=== PATIENT | female | born 2005 | race Hispanic/Latino ===

== ENCOUNTER 2023-03-06 06:05 | Observation (INO) | payer OTHER ==
[2023-03-05 15:05] LABS: BASOPHILS # (AUTO) 0.03 K/uL (0.00-0.20); BASOPHILS % (AUTO) 0.5 % (0.0-5.0); EOSINOPHILS # (AUTO) 0.03 K/uL (0.00-0.70); EOSINOPHILS % (AUTO) 0.5 % (0.0-8.0); IMMATURE GRANULOCYTE ABSOLUTE 0.02 K/uL (0-1); LYMPHOCYTES # (AUTO) 1.4 K/uL (1.0-4.8); LYMPHOCYTES % (AUTO) 23.9 % (21.0-51.0); MEAN CORPUSCULAR HEMOGLOBIN 28.9 pg (27.0-33.0); MEAN CORPUSCULAR HGB CONC 32.3 g/dL (32.0-36.0); MEAN CORPUSCULAR VOLUME 89.5 fL (80-100); MONOCYTES # (AUTO) 0.4 K/uL (0.1-1.0); MONOCYTES % (AUTO) 7.4 % (3.0-13.0); NEUTROPHILS % (AUTO) 67.4 % (40.0-77.0); PLATELET COUNT (AUTO) 282 K/uL (130-400); RED BLOOD CELL COUNT(AUTO) 4.47 MIL/uL (4.00-5.50); RED CELL DISTRIBUTION WIDTH 12.8 % (11.0-15.5)
[2023-03-05 15:11] VITALS: BP 123/59; PULSE 66; RESP 16
[2023-03-05 15:21] LABS: CREATININE 0.6 mg/dL (0.5-1.5); POTASSIUM 4.3 mmol/L (3.5-5.1)
[2023-03-06] VITALS (29 sets, daily range): BP systolic 96–115; BP diastolic 50–68; PULSE 61–94; RESP 12–20; O2SAT 97–99
[~2023-03-06] VITALS: Ht 160 cm; Wt 89.4 kg
[2023-03-06] MEDS ORDERED: LACTATED RINGERS 1000ML 1,000 ML IV ONE (06:30)
[2023-03-06] MEDS: CEFAZOLIN SODIUM 2 GM VIAL ONE ×2 (06:51→08:10)
[2023-03-06] MEDS ORDERED: BUPIVACAINE/PF 0.5% 30ML VIAL ONE (07:08)
[2023-03-06] MEDS ORDERED: LIDOCAINE PF 100MG/5ML (2%) SYRINGE 5ML ONE (07:28)
[2023-03-06] MEDS ORDERED: MIDAZOLAM HCL 1 MG/ML 2ML VIAL ONE (07:29)
[2023-03-06] MEDS ORDERED: PROPOFOL 10 MG/ML 20ML VIAL IV ONE (07:29)
[2023-03-06] MEDS ORDERED: ROCURONIUM 10MG/1ML SYR 10 MG/ML ML ONE ×2 (07:29→08:49)
[2023-03-06] MEDS ORDERED: FENTANYL CITRATE PF 50 MCG/1 ML 2ML VIAL ONE ×3 (07:30→10:00)
[2023-03-06] MEDS ORDERED: PHENYLEPHRINE HCL 10 MG/ML 1ML VIAL IV ONE (08:31)
[2023-03-06] MEDS ORDERED: DEXAMETHASONE SOD PHOSPHATE 10MG/ML 1ML VIAL ONE (08:39)
[2023-03-06] MEDS ORDERED: ONDANSETRON 4MG INJ ONE (08:39)
[2023-03-06] MEDS ORDERED: EPHEDRINE SULFATE 50 MG/ML AMPULE ONE (09:01)
[2023-03-06] MEDS ORDERED: NEOSTIGMINE 5MG/5ML SYR IV ONE (09:51)
[2023-03-06] MEDS ORDERED: GLYCOPYRROLATE 1 MG/5 ML SYRINGE ONE (09:51)
[2023-03-06] MEDS ORDERED: KETOROLAC 30MG VIAL (30MG/ML) ONE (09:54)
[2023-03-06] MEDS: ENOXAPARIN SODIUM 30 MG/0.3 ML SQ SCH ×2 (10:30→21:27)
[2023-03-06] MEDS ORDERED: PROCHLORPERAZINE 10MG/2ML INJ IV PRN (10:30)
[2023-03-06] MEDS ORDERED: MORPHINE 2 MG SYG IVP PRN (10:30)
[2023-03-06] MEDS ORDERED: ONDANSETRON 4MG INJ IVP PRN (10:30)
[2023-03-06] MEDS: KETOROLAC 15MG/ML VIAL (15MG/ML) IV PRN (12:57)
[2023-03-06] MEDS: HYDROCODONE/ACETAMINOPHEN 7.5/325 MG 15 ML UDCUP PO PRN ×2 (14:14→21:27)
[2023-03-06] MEDS: LACTATED RINGERS 1000ML 1,000 ML IV SCH ×3 (14:16→23:43)
[2023-03-06] MEDS: SIMETHICONE 80 MG TAB.CHEW PO PRN ×2 (16:39→21:38)
[2023-03-07] MEDS: LACTATED RINGERS 1000ML 1,000 ML IV SCH ×2 (00:39→05:50)
[2023-03-07] MEDS: KETOROLAC 15MG/ML VIAL (15MG/ML) IV PRN (02:20)
[2023-03-07 03:51] VITALS: BP 109/63; PULSE 72; RESP 18
[2023-03-07] MEDS: HYDROCODONE/ACETAMINOPHEN 7.5/325 MG 15 ML UDCUP PO PRN ×2 (05:50→14:23)
[2023-03-07] MEDS: SIMETHICONE 80 MG TAB.CHEW PO PRN (05:50)
[2023-03-07 08:00] VITALS: BP 120/60; PULSE 85; RESP 16; O2SAT 98
[2023-03-07] MEDS ORDERED: PANTOPRAZOLE 40 MG/VIAL IV SCH (09:00)
[2023-03-07] MEDS: ENOXAPARIN SODIUM 30 MG/0.3 ML SQ SCH (09:20)
[2023-03-07 12:00] VITALS: BP 106/52; PULSE 62; RESP 16
== END 2023-03-07 15:10 | disposition home or self-care (01) ==
LOC: DAH 06:05 → INTOOBSV 06:06 → DAHIP 06:06 → 3BH 11:55
PROVIDERS: ADMIT Surgery; ATTEND Surgery
DX: K44.9 Diaphragmatic hernia without obstruction or gangrene (principal); K21.9 Gastro-esophageal reflux disease without esophagitis; E66.01 Morbid (severe) obesity due to excess calories; Z79.899 Other long term (current) drug therapy
CPT/HCPCS: 43235; 43280; S2900; 36415; 80048; 84703; 85025; 86850; 86900; 86901; 93005; 96372; 96374; 96375; 96376; C9113; G0378; J1100; J1650; J1885; J2001; J2250; J2371; J2405; J2704; J2710; J3010; J3490; J7030; J7120; A4215; A4221; A4222; A4223; A4600; A4663; A4930; C1781; G0168; G8980-CH; G8983-CH; J0665; J0690